=== PATIENT | male | born 1950 | race Caucasian/White ===

== ENCOUNTER → 2023-12-28 12:47 | Outpatient (REF) | payer MEDICARE, SELFPAY | LOC: RAD 12:47 | PROVIDERS: ATTENDING PHYSICIAN Physician Assistant | DX: R05.3 Chronic cough (principal); R09.89 Other specified symptoms and signs involving the circulatory and respiratory systems; K90.0 Celiac disease | CPT/HCPCS: 71046 ==

== ENCOUNTER → 2024-08-19 11:32 | Outpatient (REF) | payer MEDICARE, SELFPAY ==
[2024-08-19 12:35] LABS: % Basophils 1.2 % (0-2); % Eosinophils 3.9 % (0-6); % Immature Granulocytes 0.6 % (0-0.5); % Lymphocytes 23.4 % (20.5-51.1); % Neutrophils 59.9 % (42.2-75.2); Absolute Basophils 0.1 10^3/uL (0-0.2); Absolute Eosinophils 0.2 10^3/uL (0-0.7); Absolute Lymphocytes 1.1 10^3/uL (1.2-3.4); Absolute Monocytes 0.5 10^3/uL (0.1-0.6); Absolute Neutrophils 2.9 10^3/uL (1.4-6.5); Hematocrit 47.7 % (39.0-52.0); Hemoglobin 15.6 g/dL (13.0-18.0); Mean Corp Hgb Conc. 32.7 g/dL (33.0-37.0); Mean Corpuscular Hgb 29.3 pg (27.0-31.0); Mean Corpuscular Volume 89.7 fL (80.0-94.0); Mean Platelet Volume 10.1 fL (7.4-10.4); Nucleated Red Blood Cells % 0 % (-); Platelet Count 218 10^3/uL (130-400); Red Blood Cell Count 5.32 10^6/uL (4.70-6.10); Red Cell Dist. Width 13.3 % (11.5-14.5); White Blood Cell Count 4.8 10^3/uL (4.8-10.8)
[2024-08-19 13:06] LABS: ALT (SGPT) 15 U/L (0-50); AST (SGOT) 20 U/L (17-59); Albumin 4.5 g/dl (3.5-5.0); Alkaline Phosphatase 73 U/L (38-126); Blood Urea Nitrogen 20 mg/dl (9-20); Calcium 9.6 mg/dl (8.4-10.2); Carbon Dioxide 31 mmol/L (22-30); Chloride 102 mmol/L (98-107); Glucose 95 mg/dl (70-99); HDL Cholesterol 60 mg/dl; LDL Cholesterol, Calculated 94 mg/dl; Potassium 4.3 mmol/L (3.5-5.1); Sodium 140 mmol/L (135-145); Total Cholesterol 172 mg/dl (50-199); Total Protein 7.2 g/dl (6.3-8.2); Triglyceride 90 mg/dl (10-149); Very Low Density Lipoprotein 18 mg/dl (0-30); eGFR > 60.00
[2024-08-19 13:36] LABS: Vitamin D, 25-OH*** 30.6 ng/mL (30-80)
[2024-08-19 13:49] LABS: PSA, Total - Screen 3.22 ng/ml (0.0-4.0)
[2024-08-19 14:09] LABS: Vitamin B12 622 pg/ml (239-931)
== END ==
LOC: REG 11:32
PROVIDERS: ATTENDING PHYSICIAN Physician Assistant
DX: K90.0 Celiac disease (principal); L40.9 Psoriasis, unspecified; Z13.0 Encounter for screening for diseases of the blood and blood-forming organs and certain disorders involving the immune mechanism; Z13.1 Encounter for screening for diabetes mellitus; Z13.220 Encounter for screening for lipoid disorders; Z12.5 Encounter for screening for malignant neoplasm of prostate; E53.8 Deficiency of other specified B group vitamins
CPT/HCPCS: 36415; 80053; 80061; 82306; 82607; 85025; G0103

== ENCOUNTER 2024-10-17 08:54 | Emergency (ER) | payer MEDICARE, SELFPAY ==
[2024-10-17 08:57] VITALS: BP 97/72
[2024-10-17 09:31] LABS: % Basophils 0.4 % (0-2); % Eosinophils 0.4 % (0-6); % Immature Granulocytes 0.5 % (0-0.5); % Lymphocytes 4.5 % (20.5-51.1); % Monocytes 4.9 % (1.7-9.3); % Neutrophils 89.3 % (42.2-75.2); Absolute Basophils 0.1 10^3/uL (0-0.2); Absolute Eosinophils 0.1 10^3/uL (0-0.7); Absolute Immature Granulocytes 0.1 10^3/uL (0-0.05); Absolute Lymphocytes 0.6 10^3/uL (1.2-3.4); Absolute Monocytes 0.7 10^3/uL (0.1-0.6); Absolute Neutrophils 12.4 10^3/uL (1.4-6.5); Hematocrit 47.1 % (39.0-52.0); Hemoglobin 15.7 g/dL (13.0-18.0); Mean Corp Hgb Conc. 33.3 g/dL (33.0-37.0); Mean Corpuscular Hgb 29.8 pg (27.0-31.0); Mean Corpuscular Volume 89.5 fL (80.0-94.0); Mean Platelet Volume 10.1 fL (7.4-10.4); Nucleated Red Blood Cells % 0 % (-); Platelet Count 202 10^3/uL (130-400); Red Blood Cell Count 5.26 10^6/uL (4.70-6.10); Red Cell Dist. Width 13.7 % (11.5-14.5); White Blood Cell Count 13.8 10^3/uL (4.8-10.8)
[2024-10-17 09:46] LABS: Troponin I < 0.012 ng/ml
[2024-10-17 09:49] LABS: D-Dimer 0.87 ug/mlFEU (0.00-0.50)
[2024-10-17 09:58] LABS: Blood Urea Nitrogen 22 mg/dl (9-20); Calcium 9.6 mg/dl (8.4-10.2); Carbon Dioxide 24 mmol/L (22-30); Chloride 106 mmol/L (98-107); Estimated Creatinine Clearance 71 ml/min; Glucose 121 mg/dl (70-99); Lipase 113 U/L (23-300); Sodium 139 mmol/L (135-145); eGFR > 60.00
[2024-10-17] MEDS: NSS 1000 IV (10:00)
[2024-10-17 10:33] VITALS: BP 120/88
[2024-10-17 11:00] VITALS: BP 109/71
[2024-10-17 12:00] VITALS: BP 109/71
[2024-10-17 13:00] VITALS: BP 103/70
[2024-10-17 13:18] LABS: Troponin I < 0.012 ng/ml
--- NOTE | 2024-10-17 14:48 | ED.GENMED ---
History of Present Illness
General
Chief Complaint: Fainting/Passed Out
Source: patient
Exam Limitations: none
Time Seen by Provider: 10/17/24 09:01
History of Present Illness
History of Present Illness:
Patient had some vague abdominal symptoms last evening this is not uncommon for him with his celiac disease. While on the toilet he passed out and hit his head. No chest pain no shortness of breath. Patient feels fine on ER arrival.
Past History
Past History
ED Past Surgical History: Cholecystectomy and Tonsilectomy
Review of Systems
Review of Systems
All Other Systems: Not applicable
Constitutional: Denies fever
Respiratory: Reports no symptoms
Cardiac: Denies chest pain
ABD/GI: Denies bloody stools or black stools
Phy Exam
Physical Exam
Physical Exam:
GENERAL: Alert and oriented in no apparent distress. Abrasion to the forehead.
EYE: Orbits normal.
NECK: Supple, no significant adenopathy.
ENT: Pharynx without erythema
CARDIAC: Regular rate and rhythm without any obvious murmurs.
LUNGS: Clear breath sounds,normal
ABDOMEN: Soft, without focal tenderness or distention
NEUROLOGICAL: Alert and oriented , grossly non-focal
SKIN: Warm and dry, no rash or lesion, no discoloration, skin intact.
MUSCULOSKELETAL: No edema,no deformity.Good color
PSYCH: Normal and appropriate interaction.
Course
Orders/Labs/Results
Orders:
Orders
10/17/24 09:01
Electrocardiogram (*1) Stat
Reason for Study: Other
Other Reason for Exam: chest pain
Cardiac Monitoring- Treatment ONCE
Cardiac Monitoring- Treatment ONCE
EKG- Treatment ONCE
IV Insert/Care/Rem.- Treatment PRN
0.9% Sodium Chloride 1000 ml [Nss] 1,000 ml IV BOLUS
Pulse Ox/cont/shift [RESP] Stat
Quantity: 1
10/17/24 09:02
CT Cervical Spine W/o Iv Contr Urgent
Comment:
Reason For Exam: trauma
CT Facial Bones W/o Iv Contras Urgent
Comment:
Reason For Exam: trauma
CT Head W/o Iv Contrast Urgent
Comment:
Reason For Exam: trauma
10/17/24 09:07
Basic Metabolic Panel Urgent
Complete Blood Count/With Diff Urgent
D-Dimer Urgent
Lipase Urgent
Troponin I Urgent
10/17/24 10:36
CT Chest PE Study Urgent
Comment:
Reason For Exam: Syncope/positive dimer
10/17/24 12:41
Electrocardiogram (*1) Stat
Reason for Study: Other
Other Reason for Exam: chest pain
EKG- Treatment ONCE
10/17/24 12:46
Troponin I Urgent
Abnormal Lab Results
10/17/24
09:07
WBC 13.8 H 10^3/uL
(4.8-10.8)
Abs Immat Gran (auto) 0.1 H 10^3/uL
(0-0.05)
Absolute Neuts (auto) 12.4 H 10^3/uL
(1.4-6.5)
Absolute Lymphs (auto) 0.6 L 10^3/uL
(1.2-3.4)
Absolute Monos (auto) 0.7 H 10^3/uL
(0.1-0.6)
Neutrophils % 89.3 H %
(42.2-75.2)
Lymphocytes % 4.5 L %
(20.5-51.1)
D-Dimer 0.87 H ug/mlFEU
(0.00-0.50)
BUN 22 H mg/dl
(9-20)
Glucose 121 H mg/dl
(70-99)
03/13/25 09:07
10/17/24 09:07
Vital Signs
Initial and Last Documented VS:
Initial Vital Signs
Temp Pulse Resp BP Pulse Ox
97.8 F 66 18 97/72 98
10/17/24 08:57 10/17/24 08:57 10/17/24 08:57 10/17/24 08:57 10/17/24 08:57
Last Documented Vital Signs
Temp Pulse Resp BP Pulse Ox
97.8 F 82 18 103/70 93
10/17/24 08:57 10/17/24 13:30 10/17/24 11:03 10/17/24 13:00 10/17/24 13:30
*Radiology
Radiology exam reviewed: radiology read reviewed (No acute findings. Pulmonary nodules)
*Pulse Oximetry
Patient hypoxic: no
*EKG
Interpreted by ED Provider?: Yes
Interpretation: normal
Comparison EKG: no changes
Heart Rate: 67
Rate: normal
Rhythm: sinus
[place]: normal axis
Interval: normal interval
QRS Pattern: normal QRS
Ischemia: no ischemia
*Drop Hammer Mechanic Interpretation
Rate: normal
Interpretation: normal
Heart Rate: 70
Rhythm: sinus
*Critical Care Note
Total Time (30-74mins, 75-104mins- exclusive of procedures): 35
Update Note
Update Note:
Repeat EKG normal sinus rhythm at 75 no acute changes. Repeat troponin negative. Chest CT without pulmonary emboli. Small nodules. Copy of report given to patient. Has remained medically stable and nontoxic. Feels fine. Very likely vasovagal
syncope. Discharged to follow-up. No arrhythmias on the monitor here
ED Attending Note
-
Portions of this chart may have been created with voice recognition software.� Occasional wrong word or��sound alike� substitutions may have occurred due to the inherent limitations of voice recognition software.
Discharge Plan
Departure
Patient Disposition: Home (Routine Discharge)
Date of Disposition: 10/17/24
Time of Disposition: 14:49
Patient with high blood pressure during this ER visit?: No
Discharge Problem:
Syncope, Head injury
Instructions: Syncope (Fainting) (DC), Minor Head Injury, Adult ED
Referrals:
Wanda Greenwood PA-C [Family Provider] - Follow up in 2-3 days
Interventions
Interventions:
*Risk Screen - Suicide Last Done: 10/17/24 14:56
*General Assessment Last Done: 10/17/24 08:57
*Neglect/Abuse Screening Last Done: 10/17/24 14:56
*ED- Fall Risk Assessment Last Done: 10/17/24 14:56
*ED COVID-19 Vaccine History Last Done: 10/17/24 08:57
*Nursing Disposition Last Done: 10/17/24 14:56
ED- Cardiac Assessment Last Done: 10/17/24 09:20
ED- Neurological Assessment Last Done: 10/17/24 09:20
Discharge Date and Time
Print Language: SLOVENIAN
== END 2024-10-17 15:07 | disposition home or self-care (01) ==
LOC: EMR 08:54
PROVIDERS: EMERGENCY PHYSICIAN Emergency Medicine; FAMILY PHYSICIAN Physician Assistant
DX: R55 Syncope and collapse (principal); S09.90XA Unspecified injury of head, initial encounter; W19.XXXA Unspecified fall, initial encounter; R91.8 Other nonspecific abnormal finding of lung field; Z90.49 Acquired absence of other specified parts of digestive tract
CPT/HCPCS: 99284; 96360; 70450; 70486; 71275; 72125; 80048; 83690; 84484; 85025; 85379; 93005; Q9967

== ENCOUNTER 2025-07-27 11:25 | Emergency (ER) | payer MEDICARE, SELFPAY ==
[2025-07-27 11:29] VITALS: BP 138/86
[2025-07-27 12:06] LABS: Hematocrit 49.0 % (39.0-52.0); Hemoglobin 16.0 g/dL (13.0-18.0); Mean Corp Hgb Conc. 32.7 g/dL (33.0-37.0); Mean Corpuscular Volume 89.4 fL (80.0-94.0); Nucleated Red Blood Cells % 0 % (-); Platelet Count 212 10^3/uL (130-400); Red Cell Dist. Width 13.2 % (11.5-14.5)
[2025-07-27 12:24] LABS: INR 1.15; PT 14.9 Sec (11.4-14.6)
[2025-07-27 12:36] LABS: ALT (SGPT) 17 U/L (0-50); AST (SGOT) 19 U/L (17-59); Albumin 4.5 g/dl (3.5-5.0); Alkaline Phosphatase 69 U/L (38-126); Blood Urea Nitrogen 14 mg/dl (9-20); Calcium 9.8 mg/dl (8.4-10.2); Carbon Dioxide 30 mmol/L (22-30); Chloride 104 mmol/L (98-107); Glucose 94 mg/dl (70-99); Potassium 3.9 mmol/L (3.5-5.1); Sodium 138 mmol/L (135-145); Total Protein 7.6 g/dl (6.3-8.2); eGFR > 60.00
[2025-07-27 12:47] LABS: Troponin I < 0.012 ng/ml
[2025-07-27 15:29] VITALS: BMI 26.7
[2025-07-27 15:33] VITALS: BP 140/84
[2025-07-27 16:00] VITALS: BP 136/81
--- NOTE | 2025-07-27 16:08 | ED.GENMED ---
History of Present Illness
General
Chief Complaint: Dizziness
Source: patient
Exam Limitations: none
Time Seen by Provider: 07/27/25 15:58
Nursing documentation reviewed up to this point in time: agreed with
History of Present Illness
History of Present Illness:
Patient to the emergency department with complaint of increasing nasal congestion, dizziness. Patient states that 2 days ago he noticed increase in nasal congestion and discharge. At that time he felt that his balance was becoming a little off.
He was evaluated at urgent care yesterday and placed on amoxicillin for suspected sinus infection. He states that he has had 3 doses and does not feel any better. He brought self to the emergency department for evaluation. He denies any fever or
chills. He denies nausea vomiting or diarrhea. Reports mild headache.
Past History
Past History
ED Past Medical History: None
ED Past Surgical History: Cholecystectomy and Tonsilectomy
Review of Systems
Review of Systems
Allergies reviewed?: Yes
All Other Systems: ROS reviewed and negative except as documented in HPI and ROS
Constitutional: Reports no symptoms
EENT: Reports other (Nasal congestion, nasal discharge, sinus pressure.)
Respiratory: Reports no symptoms
Cardiac: Reports no symptoms
ABD/GI: Reports no symptoms
: Reports no symptoms
Musculoskeletal: Reports no symptoms
Skin: Reports no symptoms
Neurological: Reports dizzy and headache
Psychiatric: Reports no symptoms
Phy Exam
General Physical Exam
General Presentation: well appearing and no apparent distress
General age: appears stated age
General Skin: warm
General Habitus: normal
General Mental: alert
ENT Exam
ENT Exam: EOMI, TM's normal, pharynx normal, neck supple, normocephalic and swallowing well
Eye Exam
Eye Exam: PERRL, EOMI, conjunctiva normal, globe normal and other (No nystagmus)
Cardiovascular Exam
Cardiovascular Exam: regular rate/rhythm and no edema
Pulmonary Exam
Pulmonary Exam: lungs clear and no respiratory distress
Neurological Exam
Neurological Exam: alert, oriented x3, CN II-XII intact, no motor deficits, no sensory deficits, speech normal and normal gait
[place] Coma Scale
Eye Opening: Spontaneous
Verbal Response: Oriented
Motor Response: Obeys Commands
GCS Total Score: 15
Musculoskeletal Exam
Musculoskeletal Exam: full ROM and neuro vasc intact
Skin Exam
Skin Exam: normal color, warm/dry and no rash
Psychiatric Exam
Psychiatric Exam: normal mood/affect
Course
Orders/Labs/Results
Orders:
Orders
07/27/25 11:31
EKG [Electrocardiogram (*1)] Urgent
Reason for Study: Vertigo / Dizzy
EKG- Treatment ONCE
07/27/25 11:51
Complete Blood Count/With Diff Urgent
Comprehensive Metabolic Panel Urgent
Prothrombin Time Urgent
Troponin I Urgent
07/27/25 16:06
CT Head W/o Iv Contrast Urgent
Comment:
Reason For Exam: pain, dizziness
Sinuses wo Contrast CT [CT Sinuses W/o Iv Contrast] Urgent
Comment:
Reason For Exam: pain, dizziness
07/27/25 18:26
Meclizine [Antivert] 25 mg .ROUTE .STK-MED ONE
07/27/25 18:28
Meclizine [Antivert] 25 mg PO NOW STA
Abnormal Lab Results
07/27/25
11:51
MCHC 32.7 L g/dL
(33.0-37.0)
Absolute Lymphs (auto) 0.8 L 10^3/uL
(1.2-3.4)
Neutrophils % 78.0 H %
(42.2-75.2)
Lymphocytes % 13.3 L %
(20.5-51.1)
PT 14.9 H Sec
(11.4-14.6)
07/27/25 11:51
07/27/25 11:51
Vital Signs
Initial and Last Documented VS:
Initial Vital Signs
Temp Pulse Resp BP Pulse Ox
97.2 F 68 17 138/86 99
07/27/25 11:29 07/27/25 11:29 07/27/25 11:29 07/27/25 11:29 07/27/25 11:29
Last Documented Vital Signs
Temp Pulse Resp BP Pulse Ox
97.2 F 68 17 124/82 99
07/27/25 11:29 07/27/25 11:29 07/27/25 11:29 07/27/25 17:00 07/27/25 17:15
*Pulse Oximetry
SaO2: 99
Oxygen Mode of Delivery: Room air
Patient hypoxic: no
*Critical Care Note
Total Time (30-74mins, 75-104mins- exclusive of procedures): Not Applicable
Update Note
Update Note:
Patient to the emergency department with complaint of dizziness. Symptoms started approximately 1 week ago. He was seen at urgent care yesterday and started on amoxicillin for suspected sinusitis. He states he has had 3 doses without any
improvement. Dizziness occurs with head movement. He denies any headache or vision changes. He denies any fever/chills, recent illness. On arrival to ED he is awake alert and oriented, in no distress. Vital signs are stable and he remains
afebrile. Labs are reviewed, CBC and CMP without concerning findings. CT of head and sinuses were completed. No acute findings. Discussed results with patient. Dizziness only occurs with change in position. Suspect vertigo. He is able to
ambulate safely. Will place on a course of meclizine 25 mg 3 times daily. He will be discharged home today with close follow-up with PCP. He was given instructions on signs and symptoms to return to the emergency department and he is agreeable to
this plan.
ED Attending Note
-
Portions of this chart may have been created with voice recognition software.� Occasional wrong word or��sound alike� substitutions may have occurred due to the inherent limitations of voice recognition software.
Discharge Plan
Departure
Patient Disposition: Home (Routine Discharge)
Date of Disposition: 07/27/25
Time of Disposition: 18:26
Patient with high blood pressure during this ER visit?: No
Condition: Good
Covid-19: Not Applicable
Discharge Problem:
Vertigo
Instructions: Vertigo (a Type of Dizziness) (DC)
Prescriptions:
New
meclizine 25 mg tablet
25 mg PO TID PRN (Reason: dizziness) Qty: 15 0RF
Referrals:
Wanda Greenwood PA-C [Family Provider, Internal Medicine] - Tomorrow
Activity Restrictions/Additional Instructions:
Return to the emergency department immediately for any changes in/worsening of your symptoms.
Interventions
Interventions:
*General Assessment Last Done: 07/27/25 11:30
*Neglect/Abuse Screening Last Done: 07/27/25 11:30
*ED COVID-19 Vaccine History Last Done: 07/27/25 11:30
*ED Influenza Vaccine History Last Done: 07/27/25 11:30
[facility] Risk Assessment Tool Last Done: 07/27/25 15:29
*Risk Screen - Suicide (C-SSRS) Last Done: 07/27/25 11:30
*Nursing Disposition Last Done: 07/27/25 18:32
ED- Neurological Assessment Last Done: 07/27/25 15:29
Discharge Date and Time
Discharge Date/Time: 07/27/25 18:32
Print Language: CZECH
[2025-07-27 17:00] VITALS: BP 124/82
[2025-07-27] MEDS: ANTIVERT 25 MG PO (18:29)
== END 2025-07-27 18:32 | disposition home or self-care (01) ==
LOC: EMR 11:25
PROVIDERS: Emergency Medicine; EMERGENCY PHYSICIAN Emergency Medicine; FAMILY PHYSICIAN Physician Assistant
DX: R42 Dizziness and giddiness (principal); Z90.49 Acquired absence of other specified parts of digestive tract
CPT/HCPCS: 99284; 70450; 70486; 80053; 84484; 85025; 85610; 93005